=== PATIENT | female | born 1985 | race Caucasian/White ===

== ENCOUNTER → 2018-04-28 | Outpatient (CLI) | payer BC ==
[~2018-04-28] MED LIST: PROHANCE 279.3MG/ML 5ML VIAL (A9576) As Ordered ONE
--- NOTE | 2018-04-28 19:26 | REP ---
MR PITUITARY WITHOUT AND WITH CONTRAST: HISTORY: Hyperprolactinemia. CONTRAST: ProHance 4.5 mL. There are no areas of abnormal signal intensity in the brain. There is no intraparenchymal hemorrhage, infarct, mass or midline shift. There is no abnormal intraparenchymal enhancement. The ventricular system is normal in appearance. There is no extracerebral collection. There is a small 1.2 mm focus of decreased signal intensity in the left side of the pituitary gland. This is seen only in contrast enhanced images. The pituitary gland is normal in size measuring 6 cm in height. The infundibulum is midline. The cavernous sinuses, optic chiasm and hypothalamus are normal in appearance. The visualized sinuses are clear. IMPRESSION: There is a 1.2 mm focus of decreased signal intensity in the left side of the pituitary gland that may represent a small microadenoma. Electronically Signed by Tim Foley MD 04/28/2018 07:27 P
== END ==
LOC: M RAD 17:09
PROVIDERS: ATTEND Internal Medicine Endocrinology, Diabetes & Metabolism
DX: E22.1 Hyperprolactinemia (principal)
CPT/HCPCS: 70553; A9576